=== PATIENT | female | born 1995 | race Caucasian/White ===

== ENCOUNTER 2021-02-17 08:32 | Emergency (ER) | payer MEDICAID, OTHER ==
[~2021-02-17] VITALS: Ht 162.6 cm; Wt 64.0 kg
--- NOTE | 2021-02-17 09:13 | PHYS DOC ---
Past History Past Surgical History: No Surgical History Alcohol Use: None General Adult EDM: Chief Complaint: MULTIPLE COMPLAINTS HPI: HPI: Patient is a 25-year-old female coming in for multiple complaints. Patient states she has been nauseous and threw up this morning, complaining of some white vaginal discharge and right lower quadrant pain, also has felt short of breath occasionally. Denies any nausea or shortness of breath currently. Patient states she is about 10 weeks by LMP. Her significant other recently tested positive for Covid but she had a rapid test that was negative. She has not been vaccinated but states that she had Covid about 7 months ago with mild symptoms. Review of Systems: Review of Systems: All other systems within normal limits except for as noted in the HPI Physical Exam: PE: Constitutional: Well developed, well nourished, no acute distress, non-toxic appearance. [] HENT: Normocephalic, atraumatic, bilateral external ears normal, nose normal. [] Eyes: PERRLA, conjunctiva normal, no discharge. [] Neck: No rigidity, supple, no stridor. [] Cardiovascular: Regular rate and rhythm, brisk cap refill [] Lungs & Thorax: Non labored symmetric respirations, no tachypnea or respiratory distress [] Abdomen: Soft, nondistended, right lower quadrant tenderness palpation, no guarding or rebound. Skin: Warm, dry, no erythema, no rash. [] Back: Unremarkable Extremities: No deformities, range of motion grossly intact, no lower extremity edema [] Neurologic: Alert and oriented X 3, no focal deficits noted. [] Psychologic: Affect normal, judgement normal, mood normal. [] Current Patient Data: Labs: RUN DATE: 02/17/21 [facility] *LIVE* PAGE 1 RUN TIME: 6574 Specimen Inquiry -- PATIENT: RADHA GREEN ACCT: [id number] LOC: RAMANDEEP U: [id number] AGE/SX: 25/ ROOM: RE02/17/[address]: SUKHJINDER PAYAN MD : 1995 BED: DIS: STATUS: REG ER TLOC: SPEC #: [id number] BELLE: 02/17/21 STATUS: COMP REQ #: [id number] RECD: 02/17/211324 SUBM DR: SUKHJINDER PAYAN MD SOURCE: VAGINAL ENTR: 02/17/21-[address]: LUIS WHITNEY SPDESC: ORDERED: WET PREP COMMENTS: Has specimen been collected/obtained? Y Procedure Result WET PREP Final YEAST NONE SEEN TRICHOMONAS NONE SEEN CLUE CELLS NONE SEEN WBCS NONE PRESENT RBCS NO RBCS SEEN SQUAMOUS EPS MANY Vital Signs: Vital Signs Date Time Temp Pulse Resp B/P (MAP) Pulse Ox O2 Delivery O2 Flow Rate FiO2 02/17/21 08:56 98.7 90 18 110/72 (85 100 Room Air EKG: EKG: [] Radiology/Procedures: Radiology/Procedures: [address] [address] IMAGING REPORT Signed PATIENT: RADHA GREEN MACCOUNT: [id number] : 1995 LOCATION: ER AGE: 25 SEX: F EXAM STATUS: REG ER ORD. PHYSICIAN: SUKHJINDER PAYAN MD REASON: RLQ pain PROCEDURE: OB <14 WKS W/TV US OB <14 WKS +TV DATE: 02/17/2021 9:30 AM INDICATION: RLQ pain. Patient reports tenderness 12 weeks COMPARISON: None. TECHNIQUE: Transabdominal and transvaginal ultrasonography of the pelvis was performed. Color Doppler and duplex were utilized as appropriate. FINDINGS: The uterus measures 9.7 x 5.7 x 4.5 cm. An elongate gestational sac is identified with mean sac diameter of 3.85 cm, which corresponds to 9 weeks 2 days gestation. A pole is seen with no cardiac activity. [place]-rump length is 0.4 cm, which corresponds to 6 weeks 1 day gestation. Subchorionic blood products measuring 1.6 x 2.5 x 0.8 cm. There is no free pelvic fluid. The right ovary measures 2.4 x 3.4 x 2.3 cm. 2.4 cm right adnexal mass, probably corpus luteal cyst. The left ovary measures 2.7 x 1.8 x 1.9 cm. No evidence of ovarian torsion. There is normal blood flow to both ovaries by color Doppler with arterial and venous waveforms detected. IMPRESSION: pole with no cardiac activity and measurements corresponding to 6 weeks 1 day gestation. Gestational sac measurements correspond to 9 weeks 2 days gestation. Findings are suspicious for failure. Correlate with serum hCG and LMP. Electronically signed by: Kenny Landry MD (02/17/2021 10:59 AM) [id number] DICTATED AND SIGNED BY: KENNY LANDRY MD DATE: 02/17/21 1046 CC: SUKHJINDER PAYAN MD; PCP,NO ~MTH0 0 Heart Score: C/O Chest Pain: No Risk Factors: Risk Factors: DM, Current or recent (<one month) smoker, HTN, HLP, family history of CAD, obesity. Risk Scores: Score 0 - 3: 2.5% MACE over next 6 weeks - Discharge Home Score 4 - 6: 20.3% MACE over next 6 weeks - Admit for Clinical Observation Score 7 - 10: 72.7% MACE over next 6 weeks - Early Invasive Strategies Course & Med Decision Making: Course & Med Decision Making Pertinent Labs and Imaging studies reviewed. (See chart for details) Patient ultrasound concerning for nonviable , discussed this with patient. Patient states that she had her last regular period in November, and mid December had some spotting, test was +3 weeks ago. Due to uncertainty of dates and ultrasound findings discussed with patient that unsure if the previous ultrasound she had had was measuring the gestational sac which measures at 9 weeks or the tissue that measures at 6 weeks. Discussed that we did not find a heartbeat but that it might be because it is too early. [] Dragon Disclaimer: Dragon Disclaimer: This electronic medical record was generated, in whole or in part, using a voice recognition dictation system. Departure Departure: Impression: Primary Impression: Person under investigation for COVID-19 Additional Impressions: Nausea & vomiting Abdominal pain during in first trimester Disposition: HOME / SELF CARE / HOMELESS Condition: STABLE Referrals: PCP,NO (PCP) Patient Instructions: Abdominal Pain Additional Instructions: Follow-up with [facility] for repeat ultrasound in 1 to 2 weeks. Don Jean-Baptiste MD [phone] Scripts Ondansetron (ONDANSETRON ODT) 4 Mg Tab.rapdis 1 TAB PO PRN Q6-8HRS PRN for NAUSEA, #16 TAB Prov: SUKHJINDER PAYAN MD 02/17/21 SUKHJINDER PAYAN MD Feb 17, 2021 09:13
[2021-02-17] MEDS ORDERED: ONDANSETRON ODT 4 MG TAB.RAPDIS PO ONE (09:15)
[2021-02-17 10:01] LABS: BASO % 0 % (0-3); EOS # 0.1 x10^3/uL (0.0-0.7); EOS % 1 % (0-3); HEMATOCRIT 39.1 % (36.0-47.0); HEMOGLOBIN 13.1 g/dL (12.0-15.5); LYMPH % 24 % (24-48); MEAN CORPUSCULAR HEMOGLOBIN 31 pg (25-35); MEAN CORPUSCULAR HGB CONC 33 g/dL (31-37); MEAN CORPUSCULAR VOLUME 93 fL (79-100); MONO # 0.8 x10^3/uL (0.0-1.1); MONO % 10 % (0-9); NEUT # 5.5 x10^3uL (1.8-7.7); NEUT % 65 % (31-73); PLATELET COUNT 246 x10^3/uL (140-400); RED BLOOD COUNT 4.21 x10^6/uL (3.50-5.40); WHITE BLOOD COUNT 8.5 x10^3/uL (4.0-11.0)
[2021-02-17 10:07] LABS: CALCIUM 8.9 mg/dL (8.5-10.1); CREATININE 0.7 mg/dL (0.6-1.0); GFR 100.4; POTASSIUM 3.4 mmol/L (3.5-5.1)
[2021-02-17 10:11] VITALS: BP 135/83
[2021-02-17 10:14] LABS: ALBUMIN 3.8 g/dL (3.4-5.0); ALBUMIN/GLOBULIN RATIO 1.2 (1.0-1.7); TOTAL BILIRUBIN 0.5 mg/dL (0.2-1.0); TOTAL PROTEIN 7.1 g/dL (6.4-8.2)
[2021-02-17 10:40] LABS: AMORPHOUS SEDIMENT,UR PRESENT /HPF; BACTERIA,URINE 0 /HPF (0-FEW); BILIRUBIN,URINE NEG (NEG); CLARITY,URINE HAZY; COLOR,URINE YELLOW; GLUCOSE,URINE NEG (NEG); NITRITE,URINE NEG (NEG); RBC,URINE OCC /HPF (0-2); UROBILINOGEN,URINE 0.2 mg/dL (0.2 mg/dL); WBC,URINE OCC /HPF (0-4)
[2021-02-17 10:41] LABS: SQUAMOUS EPITHELIAL CELL,UR MOD /LPF
--- NOTE | 2021-02-17 11:01 | RAD ---
US OB <14 WKS +TV DATE: 02/17/2021 9:30 AM INDICATION: RLQ pain. Patient reports tenderness 12 weeks COMPARISON: None. TECHNIQUE: Transabdominal and transvaginal ultrasonography of the pelvis was performed. Color Doppler and duplex were utilized as appropriate. FINDINGS: The uterus measures 9.7 x 5.7 x 4.5 cm. An elongate gestational sac is identified with mean sac diameter of 3.85 cm, which corresponds to 9 w eeks 2 days gestation. A pole is seen with no cardiac activity. [place]-rump length is 0.4 cm, wh ich corresponds to 6 weeks 1 day gestation. Subchorionic blood products measuring 1.6 x 2.5 x 0.8 cm. There is no free pelvic fluid. The right ovary measures 2.4 x 3.4 x 2.3 cm. 2.4 cm right adnexal mass, probably corpus luteal cyst. The left ovary measures 2.7 x 1.8 x 1.9 cm. No evidence of ovarian torsion. There is normal blood elmer w to both ovaries by color Doppler with arterial and venous waveforms detected. IMPRESSION: pole with no cardiac activity and measurements corresponding to 6 weeks 1 day gestation. Gestat ional sac measurements correspond to 9 weeks 2 days gestation. Findings are suspicious for failure. Correlate with serum hCG and LMP. Electronically signed by: Felix Landry MD (02/17/2021 10:59 AM) [id number]
[2021-02-17 11:29] LABS: INFLUENZA A PATIENT NEGATIVE (NEGATIVE); INFLUENZA B PATIENT NEGATIVE (NEGATIVE)
[2021-02-17] MEDS ORDERED: ONDA4TAB12 PO (14:31)
--- NOTE | 2021-02-18 11:35 | NUR ---
ATTEMPTED TO REACH PATIENT WITH COVID RESULTS. NO ANSWER. MAILBOX FULL
--- NOTE | 2021-02-18 15:35 | NUR ---
PATIENT NOTIFIED OF COVID RESULTS
[2021-02-19 08:09] LABS: CHLAMYDIA PROBE Negative (Negative)
== END 2021-02-17 15:32 | disposition home or self-care (01) ==
LOC: ER 08:32
DX: O21.9 Vomiting of pregnancy, unspecified (principal); R10.31 Right lower quadrant pain; Z20.822 Contact with and (suspected) exposure to COVID-19; Z3A.09 9 weeks gestation of pregnancy
CPT/HCPCS: 36415; 76801; 76817; 80053; 81001; 83690; 84702; 85025; 87491; 87591; 87804; 99284; C9803; Q0111; Q0162; U0003

== ENCOUNTER 2021-03-12 08:26 | Emergency (ER) | payer MEDICAID ==
[~2021-03-12] VITALS: Ht 162.6 cm; Wt 64.0 kg
[~2021-03-12 08:26] MED LIST: ONDA4TAB12 PO
[2021-03-12 08:42] VITALS: BP 116/88
--- NOTE | 2021-03-12 08:42 | PHYS DOC ---
Past History Past Surgical History: No Surgical History Alcohol Use: None Adult General HPI HPI Patient is a 25 year old at approximately 10 weeks 1 day female presenting for vaginal bleeding in . Reports this is an acute on chronic issue. States that she was seen in our facility approximately 1 month ago for similar symptoms and after comprehensive work-up was discharged home. She reports a few days after ER visit here she reported to [facility] and had repeat hCG performed in addition to a formal transvaginal ultrasound showing a well- appearing single live intrauterine fetus with hCG that " doubled or tripled". States she is here for the holidays and plans to follow-up with [facility] in [place] where she lives after the new year. Nonetheless, she reports last night without any known trauma, ingestion, exposure, sexual intercourse or other known event noticing different tinge in vaginal discharge when wiping after urinating. Reports she had another episode with discharge that was more red in color on tissue paper after wiping later in the evening. This morning, states she had no issues but reports she is a anxious person and wanted to come in for evaluation. She has no pain, no other symptoms. She has been taking a vitamin, no other known medical diagnoses or conditions reported. She states that she does have a mild odor to her vaginal discharge which she is unsure is physiologic from changes versus BV and wants to be checked today Review of Systems Review of Systems Fourteen body systems of review of systems have been reviewed. See HPI for pertinent positives and negative responses, other maharaj all other systems are negative, non-pertinent or non-contributory Allergies Allergies Allergies Coded Allergies Type Severity Reaction Last Updated Verified No Known Drug Allergies 02/17/21 No Physical Exam Physical Exam Constitutional: Well developed, well nourished, no acute distress, non-toxic appearance. HENT: Normocephalic, atraumatic, bilateral external ears normal, oropharynx moist, no oral exudates, nose normal. Eyes: PERRLA, EOMI, conjunctiva normal, no discharge. Neck: Normal range of motion, no tenderness, supple, no stridor. Cardiovascular: Heart rate regular, sinus rhythm, no murmurs rubs or gallops Lungs & Thorax: Bilateral breath sounds clear to auscultation Abdomen: Bowel sounds normal, soft, no tenderness, no masses, no pulsatile masses. Nonsurgical abdomen, no peritoneal signs Skin: Warm, dry, no erythema, no rash. Back: No tenderness, no CVA tenderness. Extremities: No tenderness, no cyanosis, no clubbing, ROM intact, no edema. Neurologic: Alert and oriented X 3, grossly normal motor & sensory function, no focal deficits noted. Psychologic: Affect normal, judgement normal, mood normal. Current Patient Data Vital Signs Vital Signs Date Time Temp Pulse Resp B/P (MAP) Pulse Ox O2 Delivery O2 Flow Rate FiO2 03/12/21 08:42 97.9 108 18 116/88 (97) 99 Room Air Vital Signs Date Time Temp Pulse Resp B/P (MAP) Pulse Ox O2 Delivery O2 Flow Rate FiO2 03/12/21 08:42 97.9 108 18 116/88 (97) 99 Room Air Lab Results Laboratory Tests Test 03/12/21 09:00 03/12/21 09:05 Urine Collection Type Unknown Urine Color Yellow Urine Clarity Clear Urine pH 7.0 Urine Specific [place] 1.020 Urine Protein Neg Urine Glucose (UA) Neg mg/dL Urine Ketones (Stick) Neg mg/dL Urine Blood Neg Urine Nitrite Neg Urine Bilirubin Neg Urine Urobilinogen Dipstick 0.2 mg/dL Urine Leukocyte Esterase Neg Urine RBC Occ /HPF Urine WBC 1-4 /HPF Urine Squamous Epithelial Cells Mod /LPF Urine Bacteria 0 /HPF Urine Mucus Slight /LPF Bedside Urine HCG, Qualitative hcg positive EKG EKG [] Radiology/Procedures Radiology/Procedures [] Heart Score C/O Chest Pain: No Risk Factors: Risk Factors: DM, Current or recent (<one month) smoker, HTN, HLP, family history of CAD, obesity. Risk Scores: Risk Factors: DM, Current or recent (<one month) smoker, HTN, HLP, family history of CAD, obesity. Course & Med Decision Making Course & Med Decision Making ABCs unremarkable HPI physical exam and ER work-up nonconcerning for any emergent or surgical issues Bedside ultrasound performed by myself showing a single live intrauterine fetus with ongoing activity and heart tones, this was shown to patient UA and wet prep performed that were nonconcerning for any infectious issue I discussed given patient symptoms most likely diagnosis of physiologic changes typical in , no indication for further diagnostic work-up and/or hospitalization Disclose that patient needs to keep her outpatient follow-up with [facility] er in [place] with strict return precautions discussed at length with verbalized understanding Kip Disclaimer Kip Disclaimer This electronic medical record was generated, in whole or in part, using a voice recognition dictation system. Ultrasound Ultrasound : Ultrasound: normal Progress Due to this patient's reported HPI, a focused bedside sonography for OB function was indicated Bedside ultrasonography was utilized to complete this procedure Obstetric evaluation involved transabdominal approaches to visualize the single live intrauterine fetus with positive times for extremity movement and heart rate 148. There was no evidence of gross uterine and/or bilateral ovary abnormalities or pelvic free fluid noted Departure Departure: Impression: Primary Impression: Vaginal bleeding during Disposition: HOME / SELF CARE / HOMELESS Condition: STABLE Referrals: PCP,LUIS (PCP) Patient Instructions: Vaginal Bleeding During , First Trimester Additional Instructions: You were seen for vaginal bleeding. While the etiology of your bleeding is not precisely known at this time, further studies are needed to find the answer to this issue. The [facility] doctors want to see you in the clinic, you should keep your outpatient follow-up in [place] as repeat labs and formal obstetric ultrasound will be indicated. You need to return to the ED immediately if you develop worsening pain, heavy vaginal bleeding, chest pain, shortness of breath, excessive fatigue, lightheadedness, or any other new or concerning symptoms. COLUMBA QUACH DO Mar 12, 2021 08:42
[2021-03-12 09:40] LABS: BACTERIA,URINE 0 /HPF (0-FEW); BILIRUBIN,URINE NEG (NEG); CLARITY,URINE CLEAR; COLOR,URINE YELLOW; GLUCOSE,URINE NEG (NEG); NITRITE,URINE NEG (NEG); RBC,URINE OCC /HPF (0-2); SQUAMOUS EPITHELIAL CELL,UR MOD /LPF; UROBILINOGEN,URINE 0.2 mg/dL (0.2 mg/dL)
== END 2021-03-12 09:56 | disposition home or self-care (01) ==
LOC: ER 08:26
DX: O46.91 Antepartum hemorrhage, unspecified, first trimester (principal); Z3A.10 10 weeks gestation of pregnancy
CPT/HCPCS: 81001; 81025; 99284; Q0111

== ENCOUNTER 2021-03-13 22:03 | Emergency (ER) | payer MEDICAID ==
[~2021-03-13] VITALS: Ht 162.6 cm; Wt 64.0 kg
[2021-03-13 22:26] VITALS: BP 122/61
--- NOTE | 2021-03-13 22:54 | PHYS DOC ---
Past History Past Surgical History: No Surgical History Alcohol Use: None Adult General Chief Complaint Chief Complaint: VAGINAL BLEEDING HPI HPI Patient is a 25-year-old female, at 10 weeks approximately who presents with vaginal spotting. States she was at [facility] a couple of weeks ago for the same thing and had a complete work-up. States she was here yesterday had a complete work-up and an ultrasound showing a live intrauterine . States she was having spotting yesterday as well. States that in her discharged she was told that if she continued to spot that she should come back to the emergency department. States that the spotting that she is having is only when she wipes it is light brown and not very much. Denies any worsening vaginal bleeding, discharge or pain. Denies any cramping or abdominal pain. Denies any recent traumas, illnesses, fevers, chest pain, shortness of breath. States she has an appointment with her [facility] in 2 weeks. Review of Systems Review of Systems Review of systems otherwise unremarkable except noted in HPI Allergies Allergies Allergies Coded Allergies Type Severity Reaction Last Updated Verified No Known Drug Allergies 02/17/21 No Physical Exam Physical Exam Constitutional: Well developed, well nourished, no acute distress, non-toxic appearance. [] HENT: Normocephalic, atraumatic, bilateral external ears normal, oropharynx moist, no oral exudates, nose normal. [] Eyes: conjunctiva normal, no discharge. [] Neck: Normal range of motion, no tenderness, supple, no stridor. [] Cardiovascular:Heart rate regular rhythm, no murmur [] Lungs & Thorax: Bilateral breath sounds clear to auscultation [] Abdomen: soft, no tenderness, no masses, no pulsatile masses. Bedside ultrasound showed uterus with probable gestational sac and lots of bowel gas with no obvious fetus seen. exam: No obvious bleeding or injuries. Scant brown mucus. No vaginal or cervical tenderness. Cervical os closed. [] Skin: Warm, dry, no erythema, no rash. [] Back: no CVA tenderness. [] Extremities: No tenderness, no cyanosis, no clubbing, ROM intact, no edema. [] Neurologic: Alert and oriented X 3, normal motor function, normal sensory function, no focal deficits noted. [] Psychologic: Affect normal, judgement normal, mood normal. [] Current Patient Data Vital Signs Vital Signs Date Time Temp Pulse Resp B/P (MAP) Pulse Ox O2 Delivery O2 Flow Rate FiO2 03/13/21 22:26 83 18 122/61 (81) 100 EKG EKG [] Radiology/Procedures Radiology/Procedures [] Heart Score C/O Chest Pain: No Risk Factors: Risk Factors: DM, Current or recent (<one month) smoker, HTN, HLP, family history of CAD, obesity. Risk Scores: Risk Factors: DM, Current or recent (<one month) smoker, HTN, HLP, family history of CAD, obesity. Course & Med Decision Making Course & Med Decision Making Patient is a 25-year-old female at 10 weeks who presents with vaginal spotting Vital signs not concerning. Physical exam noted above. Cervical os closed with no obvious active bleeding and no tenderness on exam Bedside ultrasound showing no obvious intrauterine but possibly an intrauterine gestational sac and lots of bowel gas. Discussed all findings with patient. Discussed different types of miscarriage and things to look out for. Gave strict return precautions to the ED. Advised to call [facility] soon as possible and discussed ED visits and see if she can get an appointment sooner for reevaluation. Patient very grateful, verbalized understanding and agreed with plan of discharge. [] Dragon Disclaimer Dragon Disclaimer This electronic medical record was generated, in whole or in part, using a voice recognition dictation system. Departure Departure: Impression: Primary Impression: Vaginal spotting Disposition: 01 HOME / SELF CARE / HOMELESS Referrals: PCP,LUIS (PCP) JACINTA PICKARD Patient Instructions: Vaginal Bleeding During , First Trimester Additional Instructions: Thank you for coming into the emergency department tonight and allowing us to take care of you. Please read the attached information carefully to go back over some of the things we discussed. As we discussed, your exam is reassuring today with no pain or significant bleeding. And your cervix was closed. As we discussed, if you were to be having a miscarriage, thanks to watch out for. We discussed different types of miscarriages. We discussed reasons to come back to the emergency department immediately. Please call your [facility] first thing in the morning to update on your ED visits and confirm your upcoming appointment. Please come back with new or concerning symptoms as we discussed. TERESA CARMICHAEL MD Mar 13, 2021 22:54
[2021-03-14 00:02] LABS: BILIRUBIN,URINE NEG (NEG); CLARITY,URINE CLOUDY; COLOR,URINE YELLOW; GLUCOSE,URINE NEG (NEG)
[2021-03-14 00:03] LABS: BACTERIA,URINE FEW /HPF (0-FEW); NITRITE,URINE NEG (NEG); SQUAMOUS EPITHELIAL CELL,UR FEW /LPF; UROBILINOGEN,URINE 0.2 mg/dL (0.2 mg/dL)
== END 2021-03-13 23:00 | disposition home or self-care (01) ==
LOC: ER 22:03
DX: O46.91 Antepartum hemorrhage, unspecified, first trimester (principal); Z3A.10 10 weeks gestation of pregnancy
CPT/HCPCS: 81001; 81025; 99284

== ENCOUNTER 2021-03-16 20:59 | Emergency (ER) | payer MEDICAID ==
[~2021-03-16] VITALS: Ht 162.6 cm; Wt 64.0 kg
[2021-03-16] MEDS ORDERED: IV NORMAL SALINE 1,000ML 1,000 ML IV ONE (22:15)
[2021-03-16] MEDS ORDERED: ONDANSETRON PF 4 MG/2 ML VIAL. IVP ONE (22:15)
--- NOTE | 2021-03-16 22:33 | PHYS DOC ---
Past History Past Medical History: No Pertinent History (MARIA DOLORES BLANCA APRN) Past Surgical History: No Surgical History (MARIA DOLORES BLANCA APRN) Alcohol Use: None Drug Use: None (MARIA DOLORES BLANCA APRN) General Adult EDM: Chief Complaint: VAGINAL BLEEDING HPI: HPI: Patient is a 25-year-old female that presents today with vaginal bleeding and abdominal pain. Patient states she was seen by her PLANT CULTURE MANAGER at [facility] she was told that she was having a miscarriage, she states that her cervix was open and that she was passing tissue at this time she was instructed to go home and drink plenty of fluids and to take Motrin for pain, patient states that her pain has increased over the last couple of hours and she states it is unbearable and she is requesting pain management for this. Patient has been seen multiple times in this emergency department other emergency departments regarding this she had an ultrasound today at her [employer]ANT C[employer]NAGER office that states she is actively miscarrying. Reported from the mother who was at the bedside patient is also had some nausea and vomiting related to the pain and is also had some dizziness, patient is currently tearful and crying. (MARIA DOLORES BLANCA APRN) Review of Systems: Review of Systems: Constitutional: Denies fever or chills Eyes: Denies change in visual acuity HENT: Denies nasal congestion or sore throat Respiratory: Denies cough or shortness of breath Cardiovascular: Denies chest pain or edema GI: Abdominal cramping, nausea vomiting, denies bloody stools or diarrhea [employer] T[employer] S[employer]: Vaginal bleeding Musculoskeletal: Denies back pain or joint pain Integument: Denies rash Neurologic: Denies headache, focal weakness or sensory changes Endocrine: Denies polyuria or polydipsia Lymphatic: Denies swollen glands Psychiatric: Denies depression or anxiety (MARIA DOLORES BLANCA APRN) Current Medications: Current Meds: Current Medications Medications (Trade) Dose Ordered Sig/Bhavesh Start Time Stop Time Status Last Admin Dose Admin Fentanyl Citrate (Fentanyl 2ml Vial) 50 mcg 1X ONCE 03/16/21 22:15 03/16/21 22:16 DC Ondansetron HCl (Zofran) 4 mg 1X ONCE 03/16/21 22:15 03/16/21 22:16 DC Sodium Chloride 1,000 ml @ 1,000 mls/hr 1X ONCE 03/16/21 22:15 03/16/21 23:14 (MARIA DOLORES BLANCA APRN) Allergies: Allergies: Allergies Coded Allergies Type Severity Reaction Last Updated Verified No Known Drug Allergies 02/17/21 No (MARIA DOLORES BLANCA APRN) Physical Exam: PE: Constitutional: Well developed, well nourished, moderate distress, crying [] HENT: Normocephalic, atraumatic, bilateral external ears normal, oropharynx moist, no oral exudates, nose normal. [] Eyes: PERRLA, EOMI, conjunctiva normal, no discharge. [] Neck: Normal range of motion, no tenderness, supple, no stridor. [] Cardiovascular:Heart rate regular rhythm, no murmur [] Lungs & Thorax: Bilateral breath sounds clear to auscultation [] Abdomen: Bowel sounds normal, soft, no tenderness, no masses, no pulsatile masses. Vaginal bleeding with tissue [] Skin: Warm, dry, no erythema, no rash. [] Back: No tenderness, no CVA tenderness. [] Extremities: No tenderness, no cyanosis, no clubbing, ROM intact, no edema. [] Neurologic: Alert and oriented X 3, normal motor function, normal sensory function, no focal deficits noted. [] Psychologic: Tearful and crying very anxious (MARIA DOLORES BLANCA APRN) Current Patient Data: Vital Signs: Vital Signs Date Time Temp Pulse Resp B/P (MAP) Pulse Ox O2 Delivery O2 Flow Rate FiO2 03/16/21 23:29 91 18 91/61 (71) 100 Room Air 03/16/21 22:58 18 97 (MARIA DOLORES BLANCA APRN) EKG: EKG: [] (MARIA DOLORES BLANCA APRN) Radiology/Procedures: Radiology/Procedures: [] (MARIA DOLORES BLANCA APRN) Heart Score: C/O Chest Pain: N/A Risk Factors: Risk Factors: DM, Current or recent (<one month) smoker, HTN, HLP, family history of CAD, obesity. Risk Scores: Score 0 - 3: 2.5% MACE over next 6 weeks - Discharge Home Score 4 - 6: 20.3% MACE over next 6 weeks - Admit for Clinical Observation Score 7 - 10: 72.7% MACE over next 6 weeks - Early Invasive Strategies (MARIA DOLORES BLANCA APRN) Course & Med Decision Making: Course & Med Decision Making Pertinent Labs and Imaging studies reviewed. (See chart for details) 2330 patient states her pain is improving she is requesting to go home. We will give patient by mouth pain medications along with ibuprofen and Zofran for nausea. Patient is to follow-up tomorrow with her [employer] C[employer]URE MANAGER for further management of her abdominal pain and her miscarriage care. Did confer with Dr. Kira lopezarding this patient in regards to labs. He did not feel like labs at this time were needed considering she had just been seen by her PLANT CULTURE MANAGER today and had an ultrasound done today. (MARIA DOLORES BLANCA APRN) Dragon Disclaimer: Dragon Disclaimer: This electronic medical record was generated, in whole or in part, using a voice recognition dictation system. (MARIA DOLORES BLANCA APRN) Attending Co-Sign The patient was seen and interviewed as well as examined at the bedside. The chart was reviewed. The case was discussed. Agree with the plan of care. (TRICIA REYNA DO) Departure Departure: Impression: Primary Impression: Miscarriage Disposition: HOME / SELF CARE / HOMELESS Condition: STABLE Referrals: PCP,NO (PCP) Patient Instructions: Miscarriage Additional Instructions: Increase by mouth fluids Percocet take 1 to 2 tablets every 6 hours as needed for severe pain Motrin 600 mg take 1 tablet every 6 hours as needed for mild-moderate pain Zofran take 1 tablet every 8 hours as needed for nausea Follow-up with your OB at [facility] tomorrow if having increased pain. Scripts Ondansetron Hcl (ZOFRAN) 4 Mg Tablet 4 MG PO TID PRN PRN for NAUSEA, #9 TAB Prov: MARIA DOLORES BLANCA [employer] 03/16/21 Ibuprofen (IBUPROFEN) 600 Mg Tablet 600 MG PO PRN Q6HRS PRN for ABDOMINAL CRAMPS, #20 TAB Prov: MARIA DOLORES BLANCA [employer] 03/16/21 Oxycodone HCl/Acetaminophen (Percocet 5-325 mg Tablet) 1 Each Tablet 1 TAB PO PRN Q6HRS PRN for ABDOMINAL CRAMPS MDD 2 Tablet(s), #20 TAB 0 Refills Prov: MARIA DOLORES BLANCA APRN 03/16/21 MARIA DOLORES BLANCA APRN Mar 16, 2021 22:33 TRICIA REYNA DO Mar 18, 2021 14:24
[2021-03-16] MEDS ORDERED: IBUP600T16 PO (23:31)
[2021-03-16] MEDS ORDERED: ONDA4TAB7 PO (23:31)
[2021-03-16] MEDS ORDERED: OXYC-325 PO (23:31)
[2021-03-16 23:35] VITALS: BP 105/57
[2021-03-17] MEDS ORDERED: ACETAMINOPHEN/CODEINE 300/30MG 4TABLET STARTPACK. PO ONE
[2021-03-17] MEDS ORDERED: ONDANSETRON 4MG ODT 4TABLET STARTPACK. PO ONE
== END 2021-03-17 00:15 | disposition home or self-care (01) ==
LOC: ER 20:59
DX: O03.9 Complete or unspecified spontaneous abortion without complication (principal)
CPT/HCPCS: 96361; 96374; 96375; 99284; J2405; J3010; J7030; Q0162